=== PATIENT | female | born 1995 | race Caucasian/White ===

== ENCOUNTER 2017-12-04 04:22 | Emergency (ER) | payer SELFPAY ==
[2015-08-20 14:18] VITALS: Ht 167.6 cm; Wt 86.2 kg
[~2017-12-04] VITALS: Ht 167.6 cm; Wt 86.2 kg
[~2017-12-04 04:22] MED LIST: ACET-1718 PO; BCP; CLAR-1 PO; IBUP-1618 PO; IBUP800T37 PO; LOR5/325 PO; METR-160 PO; OMEP-125 PO; PER PO; PREN-119 PO; PROM-110 PO
[2017-12-04 04:24] VITALS: BP 125/91
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
[2017-12-04] MEDS ORDERED: [UNRECOGNIZED DRUG - CODE] PO (04:58)
[2017-12-04] MEDS ORDERED: PARO-243 PO (04:58)
[2017-12-04 06:02] LABS: PLATELET COUNT, AUTOMATED 279 K/uL (150-450)
[2017-12-04] MEDS ORDERED: LAMO25TA64 PO (11:27)
[2017-12-04] MEDS ORDERED: SERT-1 PO (11:27)
[2017-12-04] MEDS ORDERED: PRAZ1CAP26 PO (11:27)
== END 2017-12-04 07:22 ==
LOC: ER 04:32
DX: F53 Mental and behavioral disorders associated with the puerperium, not elsewhere classified (principal); R45.851 Suicidal ideations
CPT/HCPCS: 36415; 80305; 80320; 80329; 81001; 81025; 82040; 82247; 82310; 82374; 82435; 82565; 82947; 83735; 84075; 84132; 84155; 84295; 84443; 84450; 84460; 84520; 85025; 99285

== ENCOUNTER 2017-12-04 06:52 | Inpatient (IN) | payer SELFPAY ==
[2015-08-20 14:18] VITALS: Ht 162.6 cm; Wt 91.2 kg
[~2017-12-04] VITALS: Ht 162.6 cm; Wt 91.2 kg
[~2017-12-04 06:52] MED LIST changes: +PARO-243 PO; +[UNRECOGNIZED DRUG - CODE] PO
[2017-12-04 07:30] VITALS: BP 121/97
[2017-12-04] MEDS ORDERED: LORazepam 1 MG TAB PO ONE (09:25)
[2017-12-04] MEDS ORDERED: MAG HYD/AL HYD/SIMETH 30ML UDC PO PRN (09:45)
[2017-12-04] MEDS ORDERED: ACETAMINOPHEN 325 MG TAB PO PRN (09:45)
[2017-12-04] MEDS ORDERED: LAMO25TA64 PO (11:27)
[2017-12-04] MEDS ORDERED: SERT-1 PO (11:27)
[2017-12-04] MEDS ORDERED: PRAZ1CAP26 PO (11:27)
[2017-12-04] MEDS ORDERED: HALOPERIDOL 5 MG TAB PO ONE (11:45)
[2017-12-04] MEDS: lamoTRIgine 25 MG TAB PO SCH ×2 (11:57→22:17)
[2017-12-04] MEDS ORDERED: DIAZEPAM 10 MG TAB PO ONE ×2 (15:35→21:00)
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
[2017-12-04] MEDS ORDERED: PRAZOSIN HCL 1 MG CAP PO SCH (21:00)
[2017-12-04] MEDS ORDERED: HALOPERIDOL 5 MG TAB PO SCH (21:00)
[2017-12-05 06:21] VITALS: BP 110/70
[2017-12-05] MEDS: lamoTRIgine 25 MG TAB PO SCH (07:41)
[2017-12-05] MEDS ORDERED: MULTIVITAMINS PO SCH (09:00)
--- NOTE | 2017-12-05 13:14 | DISCHARGE SUMMARY ---
DATE OF ADMISSION: December 04, 2017 DATE OF DISCHARGE: December 05, 2017 FINAL DIAGNOSES 1. Unspecified bipolar disorder. 2. History of depression. The patient was seen on the morning of December 05, 2017, for discharge. REASON FOR ADMISSION The patient was admitted to the unit due to depression with increasing agitated behaviors after she had been off of medications for several days due to visiting town and forgetting to bring her medications. Her sleep had become disturbed. She has been in treatment for depression and bipolar disorder in her state of residence. REVIEW OF SYSTEMS Please see emergency room note for complete review of systems. PHYSICAL EXAMINATION Vital signs on the day of discharge include temperature of 98, pulse 96, blood pressure 110/70, pulse oximetry 95% on room air. She denies any physical problems. LABORATORY DATA Completed upon admission showed unremarkable CBC and CMP. TSH was 3.58. Urinalysis unremarkable. screen negative. Toxicology screen negative. Undetectable serum alcohol level. MENTAL STATUS EXAMINATION GENERAL APPEARANCE, BEHAVIOR, AND ATTITUDE: Pleasant, cooperative 22-year-old female who appears her stated age. She is dressed in hospital scrubs with good grooming. No tearfulness noted. SPEECH: Clear and spontaneous and of normal rate, rhythm, and volume. MOOD: Described as much better. AFFECT: Rangeful and appropriate. She is calm. THOUGHT PROCESSES, CONTENT: Logical and goal directed. No loose associations or flight of ideas. She denies any hallucinations or paranoid thoughts. She denies any suicidal or homicidal ideation. No delusions are elicited. SENSORIUM: Clear. COGNITION: She is alert and oriented to person, place, time, and situation. MEMORY: Immediate, recent, and remote estimated grossly intact. INTELLIGENCE: Average based upon interview. INSIGHT AND JUDGMENT: Intact at this time. She is planning to go home with her family and follow up with outpatient treatment. TREATMENT The patient was restarted on her home medications. She participated in milieu therapy and psychoeducation. HOSPITAL COURSE The patient was cooperative throughout her stay. She was reinitiated on her medications. Her family was involved in her care. We did have a treatment team meeting with her father in attendance on the morning of discharge to discuss the discharge plan, and all parties were in agreement. CONDITION OF PATIENT ON DISCHARGE Considered stable and of minimal risk to herself and others. Appropriate for outpatient management. DISCHARGE The patient was discharged to home in the care of her parents. Her plan is to stay in [place] with her parents for a period of time, possibly indefinitely, and continue outpatient treatment in [place]. It is recommended that she follow up with [facility] for outpatient therapy and psychiatric medical management. The 24-hour crisis line number was provided should symptoms or problems return. The risks, benefits, and alternatives of the above discharge plan were discussed with the client and her father. Informed consent was given to proceed with the above discharge plan by this competent patient. DISCHARGE MEDICATIONS The patient was discharged on the following medications: 1. Lamictal 25 mg b.i.d. 2. Haldol 5 mg at bedtime. 3. Prazosin 1 mg at bedtime. MTDD
== END 2017-12-05 10:42 | disposition home or self-care (01) | DRG 885 ==
LOC: BHS 06:52
PROVIDERS: ADMIT Registered Nurse Psychiatric/Mental Health, Adult; ATTEND Registered Nurse Psychiatric/Mental Health, Adult
DX: F31.9 Bipolar disorder, unspecified (principal); F53 Mental and behavioral disorders associated with the puerperium, not elsewhere classified; F43.10 Post-traumatic stress disorder, unspecified

== ENCOUNTER 2019-02-20 08:56 | Inpatient (IN) | payer OTHER ==
[~2019-02-20] VITALS: Ht 164.5 cm; Wt 99.8 kg
[~2019-02-20 08:56] MED LIST changes: +LAMO25TA64 PO; -METR-160 PO; +METR500T15 PO; +PRAZ1CAP26 PO; +SERT-1 PO
[2019-02-20 09:58] VITALS: BP 85/53; Ht 164.5 cm; Wt 99.8 kg
[2019-02-20] MEDS ORDERED: PNV1COMB5 (09:58)
[2019-02-20] MEDS ORDERED: FAMOTIDINE(*) 20MG/50ML PREMIX 50 ML IVPB PRN (10:31)
[2019-02-20] MEDS ORDERED: OXYTOCIN 30 UNIT/NS 500 ML 500 ML IV PRN ×2 (10:31→11:44)
[2019-02-20] MEDS ORDERED: BUPIVACAINE 0.5% INJ 30ML VIAL EPI PRN (10:35)
[2019-02-20] MEDS ORDERED: fentaNYL CITR 100 MCG/2 ML AMP IT PRN (10:35)
[2019-02-20] MEDS ORDERED: fentaNYL CITR 100 MCG/2 ML AMP IVP PRN (10:35)
[2019-02-20] MEDS ORDERED: BUPIVACAINE 0.25% MPF INJ EPI PRN (10:35)
[2019-02-20] MEDS ORDERED: FENTANYL/ROPIVACAINE 100 ML BAG EPI PRN (10:35)
[2019-02-20] MEDS ORDERED: LIDOCAINE 1% LOCAL 300 MG/30ML INJ PRN (10:35)
[2019-02-20] MEDS ORDERED: LIDOCAINE/PF 2% 200MG/10ML AMP 200 MG/10 ML AMPUL EPI PRN (10:35)
[2019-02-20] MEDS ORDERED: LIDO/EPI 2% MPF 1:200,000 20ML EPI PRN (10:35)
[2019-02-20] MEDS ORDERED: METOCLOPRAMIDE 10 MG/2 ML SDV IVP PRN (10:35)
[2019-02-20] MEDS ORDERED: LIDOCAINE/SOD BICARB 8.4% SYR SC PRN (10:35)
[2019-02-20] MEDS ORDERED: cefOXitin/DEX(*) 2GM/50ML PREM 50 ML IVPB PRN (10:35)
[2019-02-20] MEDS: LR(*) 1000 ML BAG 1,000 ML IV PRN ×3 (11:29→21:17)
[2019-02-20 11:35] LABS: PLATELET COUNT, AUTOMATED 267 K/uL (150-450)
--- NOTE | 2019-02-20 13:40 | History & Physical ---
History of Present Illness Age of Patient: 23 : 3 Para or TPAL: 2 EDC per LMP: February 28, 2019 Estimated Gestational Age: 38.6 Chief Complaint loss of fluid History of Present Illness Presents at 38.6 weeks with loss of fluid and no labor contractions. Amnisure was positive and grossly ruptured. Cervix exam by nurse 1/thick and high. has been uneventful. She suffered psychosis in the past requiring hospital admission and was encarcerated at one point. She has been seeing [facility] and was on Latuda and Effexor prior to this . She went off these medications and has done well. Past Medical, Surgical, Family and Obstetric Histories reviewed. Please see ACOG chart. History Allergies: Coded Allergies: No Known Drug Allergies (Verified , 08/24/08) Family History: FHx: bipolar disorder Med Rec Home Meds Reported Medications Pnv #116/Iron Fumarate/Fa/Dha (EXPECTA COMBO PACK) 1 Each Combo..pkg 02/20/19 Discontinued Reported Medications Lamotrigine (LAMICTAL) 25 Mg Tablet, 25 MG PO BID 12/04/17 Prazosin Hcl (PRAZOSIN HCL) 1 Mg Capsule, 1 MG PO QHS, CAPSULE 12/04/17 Haloperidol (HALOPERIDOL) 0.5 Mg Tablet, 5 MG PO QHS 12/04/17 Review of Systems All Systems Reviewed/Normal: Yes, Except as Noted Exam General Exam Vital Signs Vital Signs Date Time Temp Pulse Resp B/P (MAP) Pulse Ox O2 Delivery O2 Flow Rate FiO2 02/20/19 09:58 97.1 94 18 85/53 (64) 96 Room Air General Apperance: Alert/Awake/No Acute Distress Neuro: No Gross deficits Cardiovascular: Regular Rate and Rhythm Respiratory: No Respiratory Distress, Clear to Auscultation Abdomen: Soft, Non-Tender, Non-Distended Extremities: No Cyanosis,Clubbing or Edema Integumentary: Skin Intact without Lesions or Rash Psychological: Alert & Oriented X3, Appropriate Mood & Affect Vaginal Discharge/Fluid?: Clear Fluid Cervical Dialation: 2.5 Cervical Effacement (%): 80 Cervical Consistency: Soft Cervical Position: Anterior Station: -3 Presentation: Vertex (confirmed with bedside u/s) Fetus Heart Tone Variabilty: Moderate FHT Accelerations: 15X15 FHT Category: I Medical Decision Making Data Points Result Diagram: 02/20/19 1118 VTE Prophylasis: Adult Deep Vein Thrombosis/Pulmonary: No Pharmacological Contraindicati: Pt at Low Risk for VTE Mechanical Contraindications: Pt at Low Risk for VTE 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 There is increased risk of chorio if cervical ripening agents used to induce so will start Pitocin and defer to her prior multiparous status to help. Will watch closely for depression signs or symptoms and consider hormonal testing. CHRISTINA MENDIOLA MD February 20, 2019 13:40
[2019-02-20] MEDS ORDERED: FENTANYL/ROPIVACAINE 100ML BAG 100 ML ONE (15:25)
--- NOTE | 2019-02-20 16:18 | Anesthesia OB Pre-Anes Eval ---
History of Present Illness Anesthesia Start Date: February 20, 2019 Anesthesia Start Time: 14:43 OB Anesthesia Diagnosis: induction - medical, spontaneous ROM Current Complication: obesity EDC: February 28, 2019 : 3 Para: 2 Pain Ratin Heart Tones: 130s Result Diagram: 02/20/19 1118 Height (Inches): 64.75 Weight (Pounds): 220 BMI (kg/m2): 37 Past Medical History Medical History: obesity Surgical History: noncontributory Previous Anesthesia: epidural Hx Anesthesia Reactions: No Hx Family Anesthesia Reaction: No Current Medications: pitocin Home Meds Reported Medications Pnv #116/Iron Fumarate/Fa/Dha (EXPECTA COMBO PACK) 1 Each Combo..pkg 02/20/19 Discontinued Reported Medications Lamotrigine (LAMICTAL) 25 Mg Tablet, 25 MG PO BID 12/04/17 Prazosin Hcl (PRAZOSIN HCL) 1 Mg Capsule, 1 MG PO QHS, CAPSULE 12/04/17 Haloperidol (HALOPERIDOL) 0.5 Mg Tablet, 5 MG PO QHS 12/04/17 Allergies: Coded Allergies: No Known Drug Allergies (Verified , 08/24/08) Anesthesia OB ROS Airway Class: ll GI ROS: clear liquids ASA Classification: 2 (No major or chronic health conditions besides obesity. Uneventful healthy .) Assessment and Plan Anesthesia Plan: LEB Assessment: lungs clear to auscultation bilaterally, Heart Regular rate and rhythm no murmurs, rubs, gallops, no edema, no chest pain, no syncope. Denies numbness, pain, tingling in hands and feet. INDIRA LEVY CRNA February 20, 2019 16:18
--- NOTE | 2019-02-20 16:37 | Procedure Note ---
Anesthetic Placement Note Anesthesia Plan: LEB Permit for Anesthesia Signed: Yes Anesthesia Technique: Patient Sitting Anesthesia Prep: Chlorhexidine Interspace: L 3-4 Local Anesthetic: 1% Lidocaine, 25 Gauge Needle Amount Local - cc's: 3 Anesthesia Needle: 17g Touhjay/Meaghanff Anesthesia Attempts: 1 Loss of Resistance: Normal Saline Depth of HUY (cm): 7.25 (slight soft loss of resistance on approach, but then more crisp loss at epidural space.) Catheter Insertion (cm): 6 (Minor paresthesia center-right in back with thread of catheter. Easy thread. Paresthesia resovled in few seconds. Catheter secured 13 cm at skin.) Catheter Type: Pink - Spring Wound Epidural Dressing: Tegaderm, Other (Sterile Benzoin tincture to skin under dressing) Anesthesia Tray: Lot Number ([id number]), Expiration Date (06/04/2020), Reference Number ([id number]) Anesthesia Medications: Epidural Test Dose: 1.5 Lido/Epi (1:200,000), Dose - mL (3), Time (1505), Negative Epidural Loading Dose: Other (6 mL 0.33% lidocaine loading dose at 1507. Then 6 mL infusion solution clinician bolus at 1521) Epidural Infusion: 0.2% Ropivicaine, With Fentanyl 2mcg/ml, Start Time: (1521) Epidural Pump Setting: Bolus Dose - mL (7), Lockout - Minutes (30), Maintenance Rate - mL/hr (7), Maximum per Hour - mL (21) Complications: None Comment: Bilateral sensory block at about T10-11 at 1510. Bilateral sensory block at about T9-10 at 1610 INDIRA LEVY CRNA February 20, 2019 16:37
--- NOTE | 2019-02-20 16:40 | Anesthesia Progress Note ---
Progress/Maintenance Anesthesia Note Date: February 20, 2019 Anesthesia Note Time: 16:20 Pain Intensity: 0 (Reports feeling no pain.) Pump: On Pump Rate (ML/HR): 7 Sensory Level: T9-10 Motor Level: Bending Knees-Bilateral Position: Left, Other (HOB up 20%) INDIRA LEVY CRNA February 20, 2019 16:40
[2019-02-20] MEDS ORDERED: DIPHTH/TETANUS/ACEL. PERTUSSIS IM ONLY ONE (22:05)
[2019-02-20] MEDS ORDERED: ACETAMINOPHEN 325 MG TAB PO PRN (22:05)
[2019-02-20] MEDS ORDERED: HYDROCORTISONE 2.5% CR 30GM TB PR PRN (22:05)
[2019-02-20] MEDS ORDERED: GLYCERIN/WITCH HAZEL LEAF 1 PK TP PRN (22:05)
[2019-02-20] MEDS ORDERED: MEASLES,MUMP,RUBELLA VAC 0.5ML SUBQ ONE (22:05)
[2019-02-20] MEDS ORDERED: MAGNESIUM HYDROXIDE* 30ML UDCP PO PRN (22:05)
[2019-02-20] MEDS ORDERED: LANOLIN OINT 7 GM TUBE TP PRN (22:05)
[2019-02-20] MEDS ORDERED: INFLUENZA VIRUS VAC 0.5ML SYR IM ONLY ONE (22:05)
[2019-02-20] MEDS ORDERED: BENZOCAINE 20% 60 ML BTL TP PRN (22:05)
--- NOTE | 2019-02-20 22:09 | OB Delivery Note ---
Delivery Note Vaginal Delivery Type: Spont. Vaginal Delivery Delivery Date: February 20, 2019 Delivery Time: 21:53 Estimated Gestational Age(wks): 38.6 Delivery Anesthesia: Epidural Sex: Male Apgars: 1 Minute (8), 5 Minute (9) Estimated Blood Loss: 100 Notes: Presented with PROM at 38 weeks and no labor. Progressed on Pitocin slowly through latent phase with a high station initially to 4 cm [id number]. Then active phase seemed to be normal with a very fast 2nd stage of labor. Was complete by 2130 and delivered with one push in ADRY position. Shoulders delivered spontaneously and placenta delivered spontaneously as well. No lacerations. Uterus massaged firm. Bleeding minimal. Spinning Lathe Operator Automatic in Attendence: No Copies to: CHRISTINA MENDIOLA MD ; CHRISTINA MENDIOLA MD February 20, 2019 22:09
--- NOTE | 2019-02-20 22:10 | Anesthesia Progress Note ---
Progress/Maintenance Anesthesia Note Date: February 20, 2019 Anesthesia Note Time: 18:45 Pain Intensity: 0 Pump: On Pump Rate (ML/HR): 7 Sensory Level: About T9-10 Motor Level: Bending Knees-Bilateral Position: Left, Semi-Fowlers INDIRA LEVY CRNA February 20, 2019 22:10
--- NOTE | 2019-02-20 22:14 | Anesthesia Progress Note ---
Assessment and Plan Anesthesia Stop Day: February 20, 2019 Anesthesia Stop Time: 21:53 (Epidural worked well and tolerated well during entire course. See RN charting for other details) Epidural Catheter Removal: Removed Catheter Intact, Yes, Removed by: (RN (See RN charting)) Removal Date: February 20, 2019 INDIRA LEVY CRNA February 20, 2019 22:14
[2019-02-20] MEDS: IBUPROFEN 800 MG TAB PO SCH (23:58)
[2019-02-21] VITALS (7 sets, daily range): BP systolic 91–121; BP diastolic 44–68
[2019-02-21] MEDS: APAP/HYDROCODONE 325/5 TAB PO PRN ×3 (06:30→17:29)
[2019-02-21] MEDS: DOCUSATE CALCIUM 240 MG CAP PO SCH ×2 (08:32→21:51)
[2019-02-21] MEDS: IBUPROFEN 800 MG TAB PO SCH ×2 (08:32→16:18)
--- NOTE | 2019-02-21 17:57 | OB/GYN Progress Note ---
OB Subjective Progress Notes Subjective Feeling well; no problems. History of psychosis following her last . She was on medication at onset of this and went off. Currently she wants to stay medication free and see how she does. GI: NEG Nausea : Voiding Well Pain: Mild OB Objective Physical Exam Vital Signs Date Time Temp Pulse Resp B/P (MAP) Pulse Ox O2 Delivery O2 Flow Rate FiO2 02/21/19 15:04 97.9 83 16 107/58 (74) 95 Room Air Intake and Output 02/21/19 07:00 Intake Total 4490 ml Output Total 3625 ml Balance 865 ml Intake Oral 2000 ml IV Total 2490 ml Output Urine Total 2825 ml Post Void Residual 800 ml # Voids 2 General Appearance: Alert/Awake/No Acute Distress Neurological: No Gross deficits Cardiovascular: Normal Rhythm & Peripheral Pulses, Regular Rate and Rhythm Respiratory: No Respiratory Distress, Clear to Auscultation Extremities: No Cyanosis,Clubbing or Edema Integumentary: Skin Intact without Lesions or Rash Psychological: Alert & Oriented X3, Appropriate Mood & Affect Result Diagram: 02/21/19 0613 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 Will see at 1-2 weeks in office and test her hormones including testosterone to see if hormone balance may help. CHRISTINA MENDIOLA MD February 21, 2019 17:57
[2019-02-21] MEDS ORDERED: IBUP800T37 PO (18:00)
[2019-02-22] MEDS: IBUPROFEN 800 MG TAB PO SCH ×2 (00:27→08:39)
[2019-02-22 03:26] VITALS: BP 112/66
[2019-02-22] MEDS: APAP/HYDROCODONE 325/5 TAB PO PRN (07:51)
--- NOTE | 2019-02-22 08:30 | OB/GYN Progress Note ---
OB Subjective Progress Notes Subjective Doing well. No problems. Ready to go home. GI: NEG Nausea Pain: Mild OB Objective Physical Exam Vital Signs Date Time Temp Pulse Resp B/P (MAP) Pulse Ox O2 Delivery O2 Flow Rate FiO2 02/22/19 05:00 15 02/22/19 03:26 97.2 74 112/66 (81) Room Air 02/21/19 15:04 95 Intake and Output 02/22/19 07:00 Intake Total 3120 ml Balance 3120 ml Intake Oral 3120 ml # Voids 4 General Appearance: Alert/Awake/No Acute Distress Neurological: No Gross deficits Cardiovascular: Normal Rhythm & Peripheral Pulses, Regular Rate and Rhythm Respiratory: No Respiratory Distress, Clear to Auscultation Extremities: No Cyanosis,Clubbing or Edema Integumentary: Skin Intact without Lesions or Rash Psychological: Alert & Oriented X3, Appropriate Mood & Affect Result Diagram: 02/21/19 0613 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
--- NOTE | 2019-02-22 08:31 | OB/GYN Discharge Summary ---
Discharge Summary Reason for Hosp/Final Diag: (1) 38 weeks gestation of (2) Premature rupture of membranes, antepartum (3) care and examination immediately after delivery Hospital Course & Plan: Reviewed plan. Will see at 1-2 weeks in office and test her hormones including testosterone to see if hormone balance may help. [place]ates Vital Signs Vital Signs Date Time Temp Pulse Resp B/P (MAP) Pulse Ox O2 Delivery O2 Flow Rate FiO2 02/22/19 05:00 15 02/22/19 03:26 97.2 74 112/66 (81) Room Air 02/21/19 15:04 95 Weight (Pounds): 220 Result Diagram: 02/21/1913 Condition: Improved Discharge: Home, Self Nursing Home Meds Reported Medications Pnv #116/Iron Fumarate/Fa/Dha (EXPECTA COMBO PACK) 1 Each Combo..pkg 02/20/19 Discontinued Reported Medications Lamotrigine (LAMICTAL) 25 Mg Tablet, 25 MG PO BID 12/04/17 Prazosin Hcl (PRAZOSIN HCL) 1 Mg Capsule, 1 MG PO QHS, CAPSULE 12/04/17 Haloperidol (HALOPERIDOL) 0.5 Mg Tablet, 5 MG PO QHS 12/04/17 Follow up Referrals: TELEGRAPH OFFICE ROUTE AIDE - In Two Weeks @ [facility] with CHRISTINA SMALLWOOD MD Follow up with: Dr. Smallwood [phone] Follow up in: 6 wks PP or PO Discharge Diet: As Tolerates Discharge Activity: As Tolerates, No Heavy Lifting x 6 wks, No Heavy Lifting > 10lb, Pelvic Rest Copies to: CHRISTINA SMALLWOOD MD ; CHRISTINA SMALLWOOD MD February 22, 2019 08:31
[2019-02-22] MEDS: DOCUSATE CALCIUM 240 MG CAP PO SCH (08:39)
[2019-02-22 08:50] VITALS: BP 122/66
== END 2019-02-22 10:51 | disposition home or self-care (01) | DRG 807 ==
LOC: OB 08:56 → OBSVTOIN 08:56
PROVIDERS: ADMIT Obstetrics & Gynecology; ATTEND Obstetrics & Gynecology
PROC: 10E0XZZ Delivery of Products of Conception, External Approach (ICD-10-PCS; principal; 2019-02-20)
DX: O42.02 Full-term premature rupture of membranes, onset of labor within 24 hours of rupture (principal); Z37.0 Single live birth; O99.214 Obesity complicating childbirth; E66.9 Obesity, unspecified; Z3A.38 38 weeks gestation of pregnancy
CPT/HCPCS: 36415; 84112; 85025; 85027; 86850; 86900; 86901; J2001; J2590; J7120; S0020

== ENCOUNTER 2019-03-22 17:04 | Emergency (ER) | payer OTHER ==
[2019-02-20 09:58] VITALS: Wt 93.9 kg
[~2019-03-22 17:04] MED LIST changes: -OMEP-125 PO; +OMEP-126 PO; +PNV1COMB5
[2019-03-22 17:16] VITALS: BP 126/62
--- NOTE | 2019-03-22 17:19 | ER Report ---
History and Physical Time Seen By MD: 17:08 HPI/ROS CHIEF COMPLAINT: Depression HISTORY OF PRESENT ILLNESS: This is a 23-year-old female who presents to the emergency department, with her for depression. Patient has a history of depression, one month ago had a healthy and nontraumatic delivery. Since then she is having little sleep, has had some depression and intermittent thoughts of self-harm though no suicidal ideation. No homicidal ideations. Patient states that with her last baby 2 years ago she had significant pos tpartum depression, her is at the bedside did not want the current episode to escalate to the extent of the last episode. Patient does seem somewhat reluctant to go to the behavioral health unit, however after I spoke with her she does seem agreeable with an admission at this time. The children are at home with a family member, the is receiving formula. Patient denies fevers or chills. No nausea or vomiting. Denies chest pain or shortness of breath. No hallucinations. REVIEW OF SYSTEMS: Constitutional: No fever, no chills. Eyes: No discharge. ENT: No sore throat. Cardiovascular: No chest pain, no palpitations. Respiratory: No cough, no shortness of breath. Gastrointestinal: No abdominal pain, no vomiting. Genitourinary: No hematuria. Musculoskeletal: No back pain. Skin: No rashes. Neurological: No headache. Psychological: As above. Allergies: Coded Allergies: No Known Drug Allergies (Verified , 08/24/08) Home Meds Active Scripts Ibuprofen (IBUPROFEN) 800 Mg Tablet, 800 MG PO Q8H PRN for PAIN, #30 TAB 0 Refills Prov:CHRISTINA MENDIOLA MD 02/21/19 Reported Medications Pnv #116/Iron Fumarate/Fa/Dha (EXPECTA COMBO PACK) 1 Each Combo..pkg 02/20/19 Past Medical/Surgical History Patient has a past medical and surgical history of GERD, left index finger fracture, back pain, near sighted, wears glasses, depression, anxiety, depression. Reviewed Nurses Notes: Yes Hx Smoking: No Smoking Status: Never Smoker Exposure to Second Hand Smoke?: No Hx Substance Use Disorder: No Hx Alcohol Use: Yes Constitutional Vital Sign - Last 24 Hours 03/22/19 03/22/19 17:16 19:00 Temp 98.0 Pulse 73 94 Resp 18 B/P (MAP) 126/62 Pulse Ox 96 95 O2 Delivery Room Air Room Air Physical Exam General Appearance: The patient is alert, has no immediate need for airway protection and no signs of toxicity. Eyes: Pupils equal and round no pallor or injection. ENT, Mouth: Mucous membranes are moist. Respiratory: There are no retractions, lungs are clear to auscultation. Cardiovascular: Regular rate and rhythm. No murmurs, clicks or rubs. Gastrointestinal: Abdomen is soft and non tender, no masses, bowel sounds normal. Neurological: Alert and oriented 4. Moving all extremity. Following all commands. No focal neuro deficits. Skin: Warm and dry, no rashes. Musculoskeletal: Neck is supple non tender. Extremities are nontender, nonswollen and have full range of motion. Psychological: Patient is making good eye contact though she does close her eyes periodically will remain closed, she states "I am thinking and listening at the same time". She does appear somewhat anxious, will answer questions appropriately, interacting well that she does seem somewhat guarded with questioning. DIFFERENTIAL DIAGNOSIS: After history and physical exam differential diagnosis was considered for depression. Medical Decision Making Data Points Result Diagram: 03/22/19 1745 03/22/19 1745 Laboratory Hematology Test 03/22/19 17:15 03/22/19 17:45 Urine Color Yellow Urine Clarity Clear Urine pH 6.0 pH (4.8-9.5) Urine Specific [place] 1.011 Urine Protein Negative mg/dL (NEGATIVE) Urine Glucose (UA) Negative mg/dL (NEGATIVE) Urine Ketones Negative mg/dL (NEGATIVE) Urine Blood Small (NEGATIVE) Urine Nitrite Negative (NEGATIVE) Urine Bilirubin Negative (NEGATIVE) Urine Urobilinogen Negative mg/dL (0.2-1.9) Urine Leukocyte Esterase Negative (NEGATIVE) Urine RBC 1 /HPF (0-2/HPF) Urine WBC <1 /HPF (0-5/HPF) Urine Squamous Epithelial Cells None /LPF (</=FEW) Urine Bacteria Negative /HPF (NONE-FEW) Urine Mucus None /HPF (NONE-FEW) Urine HCG, Qualitative Negative (NEGATIVE) Urine Opiates Screen Negative Urine Barbiturates Screen Negative Ur Tricyclic Antidepressants Screen Negative Urine Phencyclidine Screen Negative Urine Amphetamines Screen Negative Urine Benzodiazepines Screen Negative Urine Cocaine Screen Negative Urine Cannabinoids Screen Negative Red Blood Count 4.78 M/uL (4.17-5.56) Mean Corpuscular Volume 87.7 fL (80.0-96.0) Mean Corpuscular Hemoglobin 29.5 pg (26.0-33.0) Mean Corpuscular Hemoglobin Concent 33.7 g/dL (32.0-36.0) Red Cell Distribution Width 13.9 % (11.5-14.5) Mean Platelet Volume 7.7 fL (7.2-11.1) Neutrophils (%) (Auto) 60.7 % (39.4-72.5) Lymphocytes (%) (Auto) 28.1 % (17.6-49.6) Monocytes (%) (Auto) 9.2 % (4.1-12.4) Eosinophils (%) (Auto) 1.5 % (0.4-6.7) Basophils (%) (Auto) 0.5 % (0.3-1.4) Nucleated RBC Relative Count (auto) 0.0 /100WBC Neutrophils # (Auto) 3.6 K/uL (2.0-7.4) Lymphocytes # (Auto) 1.7 K/uL (1.3-3.6) Monocytes # (Auto) 0.5 K/uL (0.3-1.0) Eosinophils # (Auto) 0.1 K/uL (0.0-0.5) Basophils # (Auto) 0.0 K/uL (0.0-0.1) Nucleated RBC Absolute Count (auto) 0.00 K/uL Sodium Level 141 mmol/L (137-145) Potassium Level 3.7 mmol/L (3.5-5.0) Chloride Level 106 mmol/L (98-107) Carbon Dioxide Level 26 mmol/L (22-31) Blood Urea Nitrogen 13 mg/dl (7-18) Creatinine 0.90 mg/dl (0.52-1.04) Glomerular Filtration Rate Calc > 60.0 Random Glucose 88 mg/dl (75-110) Calcium Level 9.2 mg/dl (8.4-10.2) Magnesium Level 2.1 mg/dl (1.7-2.2) Total Bilirubin 0.4 mg/dl (0.2-1.3) Aspartate Amino Transf (AST/SGOT) 26 U/L (0-35) Alanine Aminotransferase (ALT/SGPT) 32 U/L (0-56) Alkaline Phosphatase 121 U/L (0-126) Total Protein 8.1 g/dl (6.3-8.2) Albumin 4.4 g/dl (3.5-5.0) Salicylates Level < 10 mg/L Salicylate Last Dose Date unk Acetaminophen Level < 10 ug/ml Serum Alcohol < 10 mg/dl Chemistry Test 03/22/19 17:15 03/22/19 17:45 Urine Color Yellow Urine Clarity Clear Urine pH 6.0 pH (4.8-9.5) Urine Specific [place] 1.011 Urine Protein Negative mg/dL (NEGATIVE) Urine Glucose (UA) Negative mg/dL (NEGATIVE) Urine Ketones Negative mg/dL (NEGATIVE) Urine Blood Small (NEGATIVE) Urine Nitrite Negative (NEGATIVE) Urine Bilirubin Negative (NEGATIVE) Urine Urobilinogen Negative mg/dL (0.2-1.9) Urine Leukocyte Esterase Negative (NEGATIVE) Urine RBC 1 /HPF (0-2/HPF) Urine WBC <1 /HPF (0-5/HPF) Urine Squamous Epithelial Cells None /LPF (</=FEW) Urine Bacteria Negative /HPF (NONE-FEW) Urine Mucus None /HPF (NONE-FEW) Urine HCG, Qualitative Negative (NEGATIVE) Urine Opiates Screen Negative Urine Barbiturates Screen Negative Ur Tricyclic Antidepressants Screen Negative Urine Phencyclidine Screen Negative Urine Amphetamines Screen Negative Urine Benzodiazepines Screen Negative Urine Cocaine Screen Negative Urine Cannabinoids Screen Negative White Blood Count 5.9 k/uL (4.5-11.0) Red Blood Count 4.78 M/uL (4.17-5.56) Hemoglobin 14.1 g/dL (12.0-16.0) Hematocrit 41.9 % (34.0-47.0) Mean Corpuscular Volume 87.7 fL (80.0-96.0) Mean Corpuscular Hemoglobin 29.5 pg (26.0-33.0) Mean Corpuscular Hemoglobin Concent 33.7 g/dL (32.0-36.0) Red Cell Distribution Width 13.9 % (11.5-14.5) Platelet Count 304 K/uL (150-450) Mean Platelet Volume 7.7 fL (7.2-11.1) Neutrophils (%) (Auto) 60.7 % (39.4-72.5) Lymphocytes (%) (Auto) 28.1 % (17.6-49.6) Monocytes (%) (Auto) 9.2 % (4.1-12.4) Eosinophils (%) (Auto) 1.5 % (0.4-6.7) Basophils (%) (Auto) 0.5 % (0.3-1.4) Nucleated RBC Relative Count (auto) 0.0 /100WBC Neutrophils # (Auto) 3.6 K/uL (2.0-7.4) Lymphocytes # (Auto) 1.7 K/uL (1.3-3.6) Monocytes # (Auto) 0.5 K/uL (0.3-1.0) Eosinophils # (Auto) 0.1 K/uL (0.0-0.5) Basophils # (Auto) 0.0 K/uL (0.0-0.1) Nucleated RBC Absolute Count (auto) 0.00 K/uL Glomerular Filtration Rate Calc > 60.0 Calcium Level 9.2 mg/dl (8.4-10.2) Magnesium Level 2.1 mg/dl (1.7-2.2) Total Bilirubin 0.4 mg/dl (0.2-1.3) Aspartate Amino Transf (AST/SGOT) 26 U/L (0-35) Alanine Aminotransferase (ALT/SGPT) 32 U/L (0-56) Alkaline Phosphatase 121 U/L (0-126) Total Protein 8.1 g/dl (6.3-8.2) Albumin 4.4 g/dl (3.5-5.0) Salicylates Level < 10 mg/L Salicylate Last Dose Date unk Acetaminophen Level < 10 ug/ml Serum Alcohol < 10 mg/dl Toxicology Test 03/22/19 17:15 03/22/19 17:45 Urine Opiates Screen Negative Urine Barbiturates Screen Negative Ur Tricyclic Antidepressants Screen Negative Urine Phencyclidine Screen Negative Urine Amphetamines Screen Negative Urine Benzodiazepines Screen Negative Urine Cocaine Screen Negative Urine Cannabinoids Screen Negative Salicylates Level < 10 mg/L Salicylate Last Dose Date unk Acetaminophen Level < 10 ug/ml Serum Alcohol < 10 mg/dl Urinalysis Test 03/22/19 17:15 Urine Color Yellow Urine Clarity Clear Urine pH 6.0 pH (4.8-9.5) Urine Specific [place] 1.011 Urine Protein Negative mg/dL (NEGATIVE) Urine Glucose (UA) Negative mg/dL (NEGATIVE) Urine Ketones Negative mg/dL (NEGATIVE) Urine Blood Small (NEGATIVE) Urine Nitrite Negative (NEGATIVE) Urine Bilirubin Negative (NEGATIVE) Urine Urobilinogen Negative mg/dL (0.2-1.9) Urine Leukocyte Esterase Negative (NEGATIVE) Urine RBC 1 /HPF (0-2/HPF) Urine WBC <1 /HPF (0-5/HPF) Urine Squamous Epithelial Cells None /LPF (</=FEW) Urine Bacteria Negative /HPF (NONE-FEW) Urine Mucus None /HPF (NONE-FEW) Urine HCG, Qualitative Negative (NEGATIVE) ED Course/Re-evaluation ED Course The patient was admitted to room. A history of physical obtained. Differential diagnoses were considered. A CBC, CMP and psych panel were obtained. Laboratory studies unremarkable, negative tox screen, negative UA. The patient was evaluated by one of the [facility] [place], patient did sign into the [facility] unit on a voluntary basis, I did speak with Dr. Alcaraz, as noted below, he is accepting the patient in the behavioral health unit for depression. Patient remained cooperative while in the emergency department. 03/22/2019 6:54:40 pm I did speak with Dr. Alcaraz, the psychiatrist on-call, he is accepting the patient in the [facility] unit. The patient did sign in voluntarily. Decision to Disposition Date: Mar 22, 2019 Decision to Disposition Time: 18:54 Depart Departure Latest Vital Signs Vital Signs Date Time Temp Pulse Resp B/P (MAP) Pulse Ox O2 Delivery O2 Flow Rate FiO2 03/22/19 19:00 94 95 Room Air 03/22/19 17:16 98.0 18 126/62 Impression: Primary Impression: depression Condition: Improved Disposition: XFER TO [facility] Referrals: CHRISTINA MENDIOLA MD (PCP) JAMIE GARCIA [employer]-BC Mar 22, 2019 17:19
[2019-03-22] MEDS ORDERED: PANTOPRAZOLE SOD 40 MG TABEC PO ONE (17:45)
[2019-03-22 17:55] LABS: PLATELET COUNT, AUTOMATED 304 K/uL (150-450)
== END 2019-03-22 19:26 ==
LOC: ER 17:08
DX: O99.345 Other mental disorders complicating the puerperium (principal); F53.0 Postpartum depression
CPT/HCPCS: 36415; 80305; 80320; 80329; 81001; 81025; 82040; 82247; 82310; 82374; 82435; 82565; 82947; 83735; 84075; 84132; 84155; 84295; 84443; 84450; 84460; 84520; 85025; 99284

== ENCOUNTER 2019-03-22 19:15 | Inpatient (IN) | payer OTHER ==
[2019-02-20 09:58] VITALS: Wt 93.9 kg
[2019-03-22] MEDS ORDERED: MAG HYD/AL HYD/SIMETH 30ML UDC PO PRN (19:25)
[2019-03-22] MEDS ORDERED: diphenhydrAMINE 25 MG CAP PO ONE (20:00)
[2019-03-22] MEDS ORDERED: OLANZapine 5 MG TAB PO ONE (20:00)
[2019-03-22 20:31] VITALS: BP 117/75
[2019-03-22] MEDS ORDERED: OLANZapine ZYDIS ODT 5MG TABDP PO ONE (21:45)
[2019-03-22] MEDS ORDERED: OLANZapine ZYDIS ODT 5MG TABDP ONE (22:06)
[2019-03-22] MEDS ORDERED: IBUPROFEN 800 MG TAB PO PRN (22:40)
[2019-03-23] MEDS: MULTIVITAMINS TAB PO SCH (08:09)
[2019-03-23] MEDS: PANTOPRAZOLE SOD 40 MG TABEC PO SCH (08:10)
[2019-03-23] MEDS ORDERED: OLANZapine 5 MG TAB PO ONE (11:10)
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
[2019-03-23] MEDS ORDERED: OLANZapine ZYDIS ODT 5MG TABDP PO SCH (21:00)
[2019-03-23] MEDS: OLANZapine 5 MG TAB PO SCH (21:28)
[2019-03-23] MEDS: diphenhydrAMINE 25 MG CAP PO SCH (21:28)
[2019-03-23 22:12] VITALS: BP 110/71
[2019-03-24] MEDS: MULTIVITAMINS TAB PO SCH (08:15)
[2019-03-24] MEDS: PANTOPRAZOLE SOD 40 MG TABEC PO SCH (08:15)
[2019-03-24] MEDS: OLANZapine 5 MG TAB PO PRN ×2 (10:05→11:32)
--- NOTE | 2019-03-24 12:49 | [facility] Progress Note ---
[facility] - Subjective Progress Notes Subjective Patient remains in very good spirits manic like symptoms remain, titrating zyprexa for effect. Some tangential speech ongoing. Appetite and sleep improved. No other concerns. Suicidal Ideation: None Homicidal Ideation: None [facility] - Objective Physical Exam Vital Signs Vital Signs Date Time Temp Pulse Resp B/P (MAP) Pulse Ox O2 Delivery O2 Flow Rate FiO2 03/23/19 22:12 97.2 86 110/71 (84) 95 Room Air 03/22/19 20:31 14 Muscle Strength and Tone: WNL Gait and Station: Steady [facility] Medications Reviewed: Side Effects, Benefits of Medication, Risks Allergies Reviewed: Yes Mental Status Exam General Appearance: Well Groomed, Good Eye Contact, Cooperative, Polite, Good Interaction; No Unkept, No Tearful; Psychomotor Agitation; No Bizarre Mannerisms, No Tics Speech: Clear, Spontaneous, Normal Rate (slight acdceleration), Normal Rhythm, Normal Volume, Normal Tone; No Delayed, No Slurred, No Garbled, No Rambling Mood: No Dysthmic/Depressed, No Euthymic; Hyperthymic Affect: Full and Appropriate; No Flat, No Withdrawn, No Tearful, No Anxious, No Agitated Thought Process: Organized, Logical, Loose Associations (some), Flight of Ideas (some) Thought Content: No Suicidal Ideation, No Homicidal Ideation, No Delusions, No Auditory Halllucinations, No Visual Hallucinations, No Thought Broadcasting, No Ideas of Reference, No Obsessions, No Compulsions Sensorium: Clear Cognition: Alert & Oriented-Person, Alert & Oriented-Place, Alert & Oriented- Time, [id number] Memory: Immediate, Recent, Remote Intelligence: Above Average Insight Judgment: Fair (improving) [facility] Assessment and Plan [id number] Encounter Date: Mar 24, 2019 [id number] Encounter Time: 10:00 [facility] Plan: Necessary Precautions, Individual/Group Therapy, Admin/Titrate Meds, Educate Patient Tobacco Medications: Not Appropriate Condition Multpiple Antipsychotics Used: No Problems: (1) Bipolar disorder, unspecified Optional Permanent Comment: onset, Last Edited By: Yvette Potter on Mar 24, 2019 12:46 Status: Chronic Condition 1. increase zyprexa. 2. continue treatment. Problem Qualifiers (1) Bipolar disorder, unspecified: Current bipolar episode type: manic Current episode severity: moderate YVETTE POTTER MD Mar 24, 2019 12:49
[2019-03-24] MEDS: diphenhydrAMINE 25 MG CAP PO SCH (20:45)
[2019-03-24] MEDS: OLANZapine 5 MG TAB PO SCH (20:45)
[2019-03-24 21:36] VITALS: BP 102/78
[2019-03-25 06:18] VITALS: BP 105/55
[2019-03-25] MEDS: MULTIVITAMINS TAB PO SCH (08:32)
[2019-03-25] MEDS: PANTOPRAZOLE SOD 40 MG TABEC PO SCH (08:32)
[2019-03-25] MEDS ORDERED: DIPH-740 PO (09:44)
[2019-03-25] MEDS ORDERED: PANT40TA65 PO (09:45)
[2019-03-25] MEDS ORDERED: MULT-859 PO (09:45)
[2019-03-25] MEDS ORDERED: OLAN5TAB25 PO ×2 (09:46→09:47)
--- NOTE | 2019-03-25 19:11 | SCHAAF DISCHARGE ---
DATE OF ADMISSION: March 22, 2019 DATE OF DISCHARGE: March 25, 2019 ATTENDING PHYSICIAN Brody Alcaraz MD Patient was seen at approximately 0900 hours on the a.m. of March 25, 2019, for note concerning this dictation. FINAL DIAGNOSES 1. Bipolar disorder, unspecified, with peripartum onset, likely bipolar I disorder, recent manic to moderate severe. Rule out mixed episode. 2. Patient has very supportive family. REASON FOR ADMISSION This is a 23-year-old female who one month ago gave to her third child. The patient has a history of manic and possibly depressed-type behaviors which are severe in nature and seem to be more likely associated with historically with peripartum onset. Patient was brought to the Emergency Room by her . She was somewhat unwilling to be treated; stating to the ER he did not want to let the condition worsen. Patient herself was admitted without incident. She was able to sleep. Sleep was able to be improved quickly with Zyprexa, which patient voluntarily accepted. Patient known to not want to take medications and historically seems to do alright in the absence of medications. Patient's manic behaviors continue to decline until only mild hypomanic behaviors were left at time of discharge. Patient wanting to discharge home and agreed to continue Zyprexa until see by outpatient provider. It was strongly recommended to patient and her that the patient consider long-term mood stabilizing agent, possibly Lamictal. Patient is not breast feeding at this time, and it is believed that Lamictal or similar other more benign medication for mood stability would likely be enough to control patient's underlying bipolar condition. Patient not exhibiting any homicidal behaviors, exhibiting good mood, interacting well with her , and was discharged to home. PHYSICAL EXAMINATION Please see emergency room note. Notable for agitated 23-year-old female. Vital signs at time of admission: Temperature 98.0, pulse 73, respiratory rate 18, blood pressure 126/62, and pulse oximetry 96% on room air. At time of discharge from [facility], vital signs showed temperature 96.7, pulse 108, respiratory rate 14, blood pressure 105/55, and pulse oximetry 93% on room air. LABORATORY DATA CBC upon admission was unremarkable. CMP unremarkable as well. TSH 1.30, in normal range. Urinalysis unremarkable. screen negative with a negative toxicology screen and undetectable serum alcohol level. MENTAL STATUS EXAMINATION UPON DISCHARGE GENERAL APPEARANCE, BEHAVIOR, AND ATTITUDE: Well groomed 23-year-old female, appears stated age, making good eye contact, very cooperative with this provider and other team staff, interacting well with her . No periods of tearfulness. No bizarre mannerisms or tics. SPEECH: Largely within normal limits. Potentially mild accelerations still notable. MOOD: Described as good. AFFECT: Full and variable and mood congruent. THOUGHT PROCESSES: Appear goal directed, logical. No gross loose association. Minimal flight of ideas remain. THOUGHT CONTENT: Free of auditory or visual hallucinations, ideas of reference, thought broadcasting, delusions, obsessions, compulsions. Adamantly denying suicidal or homicidal ideation. SENSORIUM: Clear. COGNITION: Alert and oriented to person, place, time, and situation. MEMORY: Immediate, recent, and remote estimated intact. INTELLIGENCE: Above average based on historical data and multiple interviews. INSIGHT AND JUDGMENT: Considered appropriate to return to home and seek help on an outpatient basis. RESULTS OF TESTING Imaging: None. Laboratory data: See above. CONSULTATIONS None. TREATMENT Patient received medications, participated in individual and group therapy. HOSPITAL COURSE Patient remained somewhat resistant to the idea of taking medications of any kind; however, much education was given on the need for medications at this time concerning her manic and possibly mixed state of emotions during this current admission. Patient did respond to Zyprexa with improved sleep and a reduction in the manic behaviors to where she gets safely discharged to home. CONDITION OF PATIENT ON DISCHARGE Stable. Considered a minimal risk to herself or others and appropriate for ongoing outpatient care as long as she continues medications as prescribed. DISPOSITION Patient discharged to home in care of her . She would follow up with outpatient services through [facility] for therapy and med management. Given the crisis line should symptoms return. DISCHARGE MEDICATIONS 1. Multivitamin with minerals daily. 2. Benadryl 50 mg at bedtime. 3. Zyprexa 5 mg to 10 mg p.o. at bedtime and Zyprexa 5 mg to 10 mg p.o. q.6 hours for agitation or manic-like symptoms. PLAN Risks, benefits, and alternatives of above discharge plan were discussed. Informed consent was given to proceed with the above discharge plan by this competent patient and her present in the room. GAGE
== END 2019-03-25 10:40 | disposition home or self-care (01) | DRG 885 ==
LOC: BHS 19:15
PROVIDERS: ADMIT Psychiatry & Neurology Psychiatry; ATTEND Psychiatry & Neurology Psychiatry
DX: F31.64 Bipolar disorder, current episode mixed, severe, with psychotic features (principal)
CPT/HCPCS: Q0163